=== PATIENT | female | born 1955 | race Caucasian/White ===

== ENCOUNTER 2025-05-19 08:45 | Emergency (ER) | payer OTHER ==
[~2025-05-19] VITALS: Ht 177.8 cm; Wt 104.3 kg
[2025-05-19] MEDS ORDERED: Benicar40 MG PO (09:11)
[2025-05-19] MEDS ORDERED: ASPI81CH PO (09:14)
[2025-05-19] MEDS ORDERED: ELIQUIS5 M2 PO (09:15)
[2025-05-19] MEDS ORDERED: FentaNYL Citrate 50 MCG/ML 2 ML Injection IV ONE (09:15)
[2025-05-19] MEDS ORDERED: FURO20 PO (09:16)
[2025-05-19] MEDS ORDERED: TERB250 PO (09:16)
[2025-05-19] MEDS ORDERED: ATOR40TA PO (09:17)
[2025-05-19] MEDS ORDERED: TAMS.4ER PO (09:17)
[2025-05-19] MEDS ORDERED: Amiodarone HCl200 MG PO (09:17)
[2025-05-19] MEDS ORDERED: METO50ER PO (09:18)
[2025-05-19] MEDS ORDERED: TIOT18 INH (09:18)
[2025-05-19 09:39] LABS: BASOPHILS ABSOLUTE AUTO 0.03 K/mm3 (0.00-0.23); BASOPHILS PERCENT AUTO 0 % (0-2); EOSINOPHILS ABSOLUTE AUTO 0.18 K/mm3 (0.00-0.68); EOSINOPHILS PERCENT AUTO 3 % (0-6); Hematocrit 46.1 % (33.0-51.0); Hemoglobin 15.4 g/dL (11.5-16.0); IMMATURE GRAN ABSOLUTE AUTO 0.04 K/mm3 (0.00-0.10); IMMATURE GRAN PERCENT AUTO 1 % (0-1); LYMPHOCYTES ABSOLUTE AUTO 2.24 K/mm3 (0.84-5.20); LYMPHOCYTES PERCENT AUTO 31 % (21-46); MONOCYTES ABSOLUTE AUTO 0.66 K/mm3 (0.16-1.47); MONOCYTES PERCENT AUTO 9 % (4-13); Mean Corpuscular HGB Conc 33.4 g/dL (31.5-36.5); Mean Corpuscular Volume 92 fL (80-100); NEUTROPHILS ABSOLUTE AUTO 4.04 K/mm3 (1.96-9.15); NEUTROPHILS PERCENT AUTO 56 % (41-73); NRBC ABSOLUTE 0.00 K/mm3 (0.00-0.02); NRBC Auto 0.0 /100 WBC (0.0-0.2); Platelet Count 220 K/mm3 (150-400); RDW Coefficient Variation 13.0 % (11.7-14.2); RDW Standard Deviation 44.5 fL (35.1-46.3)
[2025-05-19 09:50] LABS: Source, Urine Clean Catch
[2025-05-19 09:52] LABS: Alanine Aminotransfer (ALT/SGP 28.0 U/L (12-78); Albumin, Blood 3.4 g/dL (3.4-5.0); Albumin/Globulin Ratio 0.9 (0.8-1.8); Anion Gap 6.0 mmol/L (3-11); Aspartate Aminotrans (AST/SGOT 20.0 U/L (12-37); Bilirubin, Total 0.6 mg/dL (0.1-1.0); Blood Urea Nitrogen 14.0 mg/dL (8-24); CO2, Blood 28.0 mmol/L (21-32); Calcium, Blood 7.9 mg/dL (8.5-10.1); Chloride, Blood 106.0 mmol/L (98-108); Creatinine, Blood 1.19 mg/dL (0.40-1.00); Globulin, Blood 3.9 g/dL (2.2-4.0); Glucose, Blood 80.0 mg/dL (70-99); Potassium, Blood 4.0 mmol/L (3.5-5.5); Sodium, Blood 136.0 mmol/L (136-145); Total Protein, Blood 7.3 g/dL (6.4-8.2)
[2025-05-19 10:00] LABS: Bilirubin, Urine Neg (Neg); Color, Urine Yellow (P-Yellow); Glucose Qualitative, Urine Neg (Neg); Ketones, Urine Neg (Neg); Leukocyte Esterase, Urine Neg (Neg); Protein, Urine Neg (Neg); Specific Gravity, Urine 1.020 (1.003-1.022); Urobilinogen, Urine NORM (Normal)
[2025-05-19] MEDS ORDERED: NS 1,000 ML IV SCH (10:00)
[2025-05-19 10:08] LABS: White Blood Cells, Urine 0-2 /hpf (0-5)
[2025-05-19] MEDS ORDERED: Ketorolac Tromethamine 30mg Vial IV ONE (11:15)
[2025-05-19] MEDS ORDERED: Lidocaine 4% 1 Patch TOP ONE (12:50)
[2025-05-19] MEDS ORDERED: LIDO700A20 TOP (13:10)
[2025-05-19] MEDS ORDERED: CYCL10 PO (13:10)
== END 2025-05-19 13:50 | disposition home or self-care (01) ==
LOC: ER 08:45
PROVIDERS: Student in an Organized Health Care Education/Training Program
DX: M62.830 Muscle spasm of back (principal); R31.29 Other microscopic hematuria; R10.9 Unspecified abdominal pain; I48.91 Unspecified atrial fibrillation; I10 Essential (primary) hypertension; Z79.82 Long term (current) use of aspirin; Z79.01 Long term (current) use of anticoagulants; Z79.899 Other long term (current) drug therapy; E78.5 Hyperlipidemia, unspecified
CPT/HCPCS: 74177; 80053; 81001; 83690; 85025; 93005; 93010; 96374-59; 96375; 99284-25; A9270; J1885; J3010; J7030; Q9967